=== PATIENT | female | born 1975 | race Caucasian/White ===

== ENCOUNTER 2016-10-11 10:57 | Inpatient (IN) | payer OTHER ==
[2016-10-11] MEDS ORDERED: LR 500 ML IV PRN (11:57)
[2016-10-11] MEDS ORDERED: VANCOMYCIN HCL/NORMAL SALINE 250 ML IV SCH (12:00)
[2016-10-11] MEDS ORDERED: OXYTOCIN/RINGERS LACTATE 500 ML IV SCH (12:00)
[2016-10-11] MEDS ORDERED: TERBUTALINE SULFATE 1 MG/ML VIAL IV PRN (12:04)
[2016-10-11] MEDS ORDERED: OXYTOCIN/RINGERS LACTATE 1,000 ML IV PRN (12:04)
[2016-10-11] MEDS ORDERED: LR 1,000 ML IV PRN (12:04)
[2016-10-11 13:00] LABS: ADD DIFF? YES; ADD MORPH? NO; ADD SCAN? NO; ATYPICAL LYMPHOCYTE FLAG 10 (0-99); FRAGMENT RBC FLAG 0 (0-99); HEMATOCRIT 41.5 % (38.0-47.0); HEMOGLOBIN 14.2 g/dL (12.6-16.3); LEFT SHIFT FLG 20 (0-99); LIPEMIA HEMOLYSIS FLAG 90 (0-99); MEAN CELL HEMOGLOBIN 29.7 pg (27.9-34.1); MEAN CELL HEMOGLOBIN CONCENTR. 34.2 g/dL (32.4-36.7); MEAN CELL VOLUME 86.8 fL (81.5-99.8); MEAN PLATELET VOLUME 10.9 fL (8.7-11.7); PLATELET CLUMPS FLAG 0 (0-99); PLATELET COUNT 213 10^3/uL (150-400); RED BLOOD CELL COUNT 4.78 10^6/uL (4.18-5.33)
[2016-10-11 13:20] LABS: ALANINE AMINOTRANSFERASE 28 IU/L (9-52); ASPARTATE AMINOTRANSFERASE 20 IU/L (14-46); BILIRUBIN,TOTAL 0.7 mg/dL (0.1-1.4); BILIRUBIN-CONJUGATED 0.2 mg/dL (0.0-0.5); BILIRUBIN-UNCONJUGATED 0.5 mg/dL (0.0-1.1); CREATININE 0.7 mg/dL (0.6-1.0); GLOMERULAR FILTRATION RATE > 60; LACTATE DEHYDROGENASE 520 IU/L (313-618); URIC ACID 3.7 mg/dL (2.5-6.8)
--- NOTE | 2016-10-11 13:33 | GHP ---
[f rep st] PREOP HISTORY AND PHYSICAL DATE OF ADMISSION: 10/11/2016 CHIEF COMPLAINT: Mild preeclampsia, 38-1/7 weeks gestation. HISTORY OF PRESENT ILLNESS: The patient is a 41-year-old G2, P1-0-0-1 female who is at 38-1/7 weeks gestation by LMP and 9-week ultrasound, who presents for induction of labor for mild preeclampsia, diagnosed off 2 elevated blood pressures and elevated 24-hour urine. She does complain of a mild headache this morning. PAST MEDICAL HISTORY: Significant for hypothyroidism after thyroidectomy for toxic thyroid nodule. OBSTETRICAL HISTORY: One previous , 3704 g. was complicated by -associated hypertension as well. FAMILY HISTORY: Significant for mother with breast cancer. SOCIAL HISTORY: She is . She is in computer science. GYNECOLOGIC HISTORY: Noncontributory. MEDICATIONS: Include vitamin daily and Synthroid 75 mcg daily. REVIEW OF SYSTEMS: Positive for headache. No loss of fluid or vaginal bleeding. PHYSICAL EXAMINATION: VITAL SIGNS: Blood pressure is 133/70. Pulse is 83. Respiratory rate is 20. Temperature is 36.8. GENERAL: She is in no apparent distress. ABDOMEN: Gravid, nontender. heart tones are in the 130s with moderate variability, positive axis. She is drake irregularly. PELVIC: Her cervical exam is 2, 50, and -2 station with clear amniotic fluid. LABORATORY DATA: Blood type is O positive. Antibody screen negative. Rubella immune. RPR nonreactive. Hepatitis B surface antigen negative. HIV negative. Gonorrhea and chlamydia negative. 1-hour Glucola normal. GBS is positive. ASSESSMENT AND PLAN: 41-year-old G2, P1 female who is at 38-1/7 weeks gestation with mild preeclampsia. Blood pressures are stable currently, and we will check her preeclampsia labs. wellbeing is reassuring. GBS is positive. She is allergic to penicillin. We will give her vancomycin. /[id number]/MODL MTDD
[2016-10-11 13:49] LABS: PLATELET ESTIMATE ADEQUATE (ADEQ)
[2016-10-11] MEDS ORDERED: LIDOCAINE 1% 30 ML SDV ONE ×4 (15:02→15:07)
[2016-10-11] MEDS ORDERED: MISOPROSTOL 200 MCG TAB ONE (15:08)
--- NOTE | 2016-10-11 18:06 | OBPROG ---
OBG Progress Note Assessment/Plan: Assessment: 41 yo @ 38 1, IOL for mild pre-eclampsia Plan: 10/11/16 18:05 FWB reassuring. GBS positive, s/p vancomycin x 1. Mild azq-cxgmqcyvb-uwn stable. Expect . Subjective: 41 yo @ 38 1/7, IOL for mild fya-oqwylkmic-aftdgtydjbgg a little stronger. Objective: 10/11/16 12:35 10/11/16 12:35 Patient ABO/Rh O POSITIVE 10/11/16 12:35 Uric Acid 3.7 mg/dL (2.5-6.8) 10/11/16 12:35 Total Bilirubin 0.7 mg/dL (0.1-1.4) 10/11/16 12:35 Conjugated Bilirubin 0.2 mg/dL (0.0-0.5) 10/11/16 12:35 Unconjugated Bilirubin 0.5 mg/dL (0.0-1.1) 10/11/16 12:35 AST 20 IU/L (14-46) 10/11/16 12:35 ALT 28 IU/L (9-52) 10/11/16 12:35 Lactate Dehydrogenase 520 IU/L (313-618) 10/11/16 12:35 133/70 78 20 36.7 - SVE Dilation (cm): 4 Effacement (%): 50 Station: -2 Current Contraction Pattern: Regular FHR (bpm): 140 FHR Pattern Variability: Moderate FHR Category: 2 Membranes: AROM Amniotic Fluid Color: Clear ICD10 Worksheet Patient Problems: Problems Problem Status Onset Mild pre-eclampsia Acute Labor established Acute
[2016-10-11] MEDS ORDERED: fentaNYL 2MCG/ML/BUP 0.1% RTU 100 ML BAG EP ONE (19:04)
[2016-10-11] MEDS ORDERED: BUPIVACAINE 0.25% 30 ML SDV ONE ×2 (19:04→20:06)
[2016-10-11] MEDS ORDERED: PHENYLEPHRINE HCL 100 MCG/ML SYR ONE (19:05)
[2016-10-11] MEDS ORDERED: NALOXONE HCL 0.4 MG/ML INJ IVP PRN (19:29)
[2016-10-11] MEDS ORDERED: PHENYLEPHRINE HCL 100 MCG/ML SYR IVP PRN (19:29)
[2016-10-11] MEDS ORDERED: ONDANSETRON 4 MG/2 ML VIAL IVP PRN (19:29)
[2016-10-11] MEDS ORDERED: fentaNYL 2MCG/ML/BUP 0.1% RTU 100 ML EP SCH (19:30)
[2016-10-11] MEDS ORDERED: LR 500 ML IV SCH (19:30)
[2016-10-11] MEDS ORDERED: HYDROCODONE/APAP 5/325 TAB PO PRN (21:16)
[2016-10-11] MEDS ORDERED: HYDROCORTISONE 0.5% CREAM TP PRN (21:16)
[2016-10-11] MEDS ORDERED: SIMETHICONE 80 MG TAB CHEW PO PRN (21:16)
--- NOTE | 2016-10-11 21:18 | OBPROC ---
- Labor and Delivery Onset of Contractions Date: 10/11/16 Onset of Contractions Time: 13:00 Onset of Contractions Type: Induced Rupture of Membranes Date: 10/11/16 Rupture of Membranes Time: 13:00 Rupture of Membranes Type: Artificial Amniotic Fluid Color: Clear Dilation Complete Time: 21:00 Delivery Type: Spontaneous Placenta Delivery Date: 10/11/16 EBL: 200 ml Complications: Nuchal Cord - Medications Labor Augmentation/Induction Meds Used: Pitocin Labor Augmentation/Induction Indication: Medical (mild pre-eclampsia) Anesthesia: Epidural - [place] Info A Delivery Date: 10/11/16 Delivery Time: 21:08 Sex of Infant: Male Score (1 Min): 7 Score (5 Min): 9
[2016-10-11] MEDS: IBUPROFEN 600 MG TAB PO PRN (23:37)
[2016-10-12 01:39] VITALS: RESP 16
[2016-10-12] MEDS: IBUPROFEN 600 MG TAB PO PRN ×3 (06:42→22:45)
[2016-10-12] MEDS: LEVOTHYROXINE 50 MCG TAB PO SCH (07:26)
[2016-10-12] MEDS: DOCUSATE SODIUM 100 MG CAP PO PRN (07:31)
--- NOTE | 2016-10-12 08:08 | SOAPPROG ---
SOAP Progress Note Assessment/Plan: Assessment: 41 yo s/p , ppd 1, with mild pre-eclampsia Plan: 10/12/16 08:07 Bp stable. Routine pp care. Home tomorrow. Rh +. Subjective: 41 yo s/p , ppd 1, with mild hew-wczlxwomm-saeuh well, pain well controlled, ambulating, . Objective: Vital Signs Temp Pulse Resp BP Pulse Ox 36.4 C 80 16 114/62 10/12/16 03:00 10/12/16 03:00 10/12/16 03:00 10/12/16 03:00 Laboratory Results 10/11/16 12:35 10/11/16 12:35 10/11/16 10/12/16 10/13/16 05:59 05:59 05:59 Output Total 200 Balance -200 Physical Exam - Physical Exam General Appearance: no apparent distress Respiratory: lungs clear Cardiac/Chest: regular rate, rhythm Abdomen: non-tender Skin: warm/dry Extremities: non-tender Neuro/Psych: oriented x 3 ICD10 Worksheet Patient Problems: Problems Problem Status Onset Mild pre-eclampsia Acute Labor established Acute
[2016-10-13] MEDS: IBUPROFEN 600 MG TAB PO PRN ×2 (04:54→11:41)
[2016-10-13] MEDS: LEVOTHYROXINE 50 MCG TAB PO SCH (05:00)
--- NOTE | 2016-10-13 07:37 | OBGCSDC ---
General Delivery Information - General Info : 2 Para: 2 Delivery Date: 10/11/16 Delivery Time: 21:08 Delivery Physician/CNM: Meri Larson Admission Date: 10/11/16 Labs: Patient ABO/Rh O POSITIVE 10/11/16 12:35 Hct 41.5 % (38.0-47.0) 10/11/16 12:35 - [place] Info Infant A Sex of Infant: Male Score (1 Min): 7 Score (5 Min): 9 Vaginal - Diagnosis Labor: Induced Rupture of Membranes Type: Artificial Amniotic Fluid Color: Clear Complications: Nuchal Cord - Operations/Procedures Delivery Type: Spontaneous - Delivery EBL: 200 ml Anesthesia: Epidural Discharge Information - Discharge Information Discharge Medications: Ibuprofen, Vitamins, Vicodin Complications: AMA, hypothyroidism, GBS pos, mild preeclampsia Condition: Good Instruction/Follow Up: Six Weeks Discharge Physician/CNM: Anya Cleaning Discharge Date: 10/13/16 Dictated: No
[2016-10-13 08:51] VITALS: BP 122/80; PULSE 80; TEMP 97.8; O2SAT 96
[2016-10-13] MEDS: DOCUSATE SODIUM 100 MG CAP PO PRN (11:41)
== END 2016-10-13 13:30 | disposition home or self-care (01) | DRG 775 ==
LOC: FLD 10:57 → FOB 10-12 01:06
PROVIDERS: ADMIT Obstetrics & Gynecology; ATTEND Obstetrics & Gynecology
PROC: 3E033VJ Introduction of Other Hormone into Peripheral Vein, Percutaneous Approach (ICD-10-PCS; principal; 2016-10-11)
PROC: 10907ZC Drainage of Amniotic Fluid, Therapeutic from Products of Conception, Via Natural or Artificial Opening (ICD-10-PCS; principal; 2016-10-11)
PROC: 10E0XZZ Delivery of Products of Conception, External Approach (ICD-10-PCS; principal; 2016-10-11)
DX: O14.04 Mild to moderate pre-eclampsia, complicating childbirth (principal); O69.81X0 Labor and delivery complicated by cord around neck, without compression, not applicable or unspecified; O36.63X0 Maternal care for excessive fetal growth, third trimester, not applicable or unspecified; O09.523 Supervision of elderly multigravida, third trimester; O99.284 Endocrine, nutritional and metabolic diseases complicating childbirth; E03.9 Hypothyroidism, unspecified; O99.820 Streptococcus B carrier state complicating pregnancy; Z3A.38 38 weeks gestation of pregnancy; Z37.0 Single live birth
CPT/HCPCS: J2370; J2590; J3370